=== PATIENT | male | born 1995 | race Two or more races ===

== ENCOUNTER 2020-09-04 20:27 | Emergency (ER) | payer OTHER ==
[~2020-09-04] VITALS: Ht 193 cm; Wt 78.9 kg
[2020-09-04] MEDS ORDERED: LAMO100 PO (20:39)
[2020-09-04] MEDS ORDERED: FINA5 PO (20:39)
== END 2020-09-05 00:42 | disposition home or self-care (01) ==
LOC: ER 20:27
DX: R45.851 Suicidal ideations (principal); Z79.899 Other long term (current) drug therapy
CPT/HCPCS: 99283; Q3014